=== PATIENT | female | born 1950 | race Caucasian/White ===

== ENCOUNTER 2017-05-23 13:13 | Emergency (ER) | payer MEDICARE, OTHER ==
[2017-05-23 13:17] VITALS: BP 117/54
[2017-05-23] MEDS ORDERED: Sodium Chloride 0.9% 10 ML Syringe FLUSH PRN (13:27)
[2017-05-23] MEDS ORDERED: Sodium Chloride 0.9% 1,000 ML IV SCH (13:30)
--- NOTE | 2017-05-23 13:30 | EDM.PDOC ---
ED HPI GENERAL MEDICAL PROBLEM - General Chief Complaint: Gastrointestinal Problem Stated Complaint: Nausea/Vomiting Time Seen by Provider: 05/23/17 13:20 Source of Information: Reports: Patient History Limitations: Reports: No Limitations - History of Present Illness INITIAL COMMENTS - FREE TEXT/NARRATIVE: Patient is a 66-year-old female who presents to the ER with chief complaint of diarrhea some nausea and vomiting denies pain Onset: Today, Gradual Duration: Hour(s): Location: Reports: Abdomen Quality: Reports: Ache, Sharp Severity: Moderate Improves with: Reports: None Worsens with: Reports: None Context: Reports: Activity, Sick Contact Associated Symptoms: Reports: Fever/Chills, Nausea/Vomiting Back Pain Score (Numeric/FACES): 4 - Related Data Allergies Allergy/AdvReac Type Severity Reaction Status Date / Time aspirin Allergy Shaking Verified 05/23/17 13:14 Home Meds: Home Meds . [Unable to Verify Home Med List] 05/23/17 [History] ED ROS GENERAL - Review of Systems Review Of Systems: See Below Constitutional: Reports: No Symptoms HEENT: Reports: No Symptoms Respiratory: Reports: No Symptoms Cardiovascular: Reports: No Symptoms Endocrine: Reports: No Symptoms GI/Abdominal: Reports: Diarrhea (watery), Other (Dry heaves) : Reports: No Symptoms Skin: Reports: Other (Lower back pain) Psychiatric: Reports: No Symptoms Hematologic/Lymphatic: Reports: No Symptoms Immunologic: Reports: No Symptoms ED EXAM, GI/ABD - Physical Exam Exam: See Below Exam Limited By: No Limitations General Appearance: Alert, WD/WN, No Apparent Distress Ears: Normal External Exam, Normal Canal, Hearing Grossly Normal, Normal TMs Nose: Normal Inspection, Normal Mucosa, No Blood Throat/Mouth: Normal Inspection, Normal Lips, Normal Teeth, Normal Gums, Normal Oropharynx, Normal Voice, No Airway Compromise Head: Atraumatic, Normocephalic Neck: Normal Inspection, Supple, Non-Tender, Full Range of Motion Respiratory/Chest: No Respiratory Distress, Lungs Clear, Normal Breath Sounds, No Accessory Muscle Use, Chest Non-Tender Cardiovascular: Normal Peripheral Pulses, Regular Rate, Rhythm, No Edema, No Gallop, No JVD, No Murmur, No Rub GI/Abdominal: Normal Bowel Sounds, Non-Tender, Hyperactive Bowel Sounds, Other ( Back pain) (Female) Exam: Deferred Rectal (Female) Exam: Deferred Back Exam: Normal Inspection, Full Range of Motion, NT Extremities: Normal Inspection, Normal Range of Motion, Non-Tender, Normal Capillary Refill, No Pedal Edema Neurological: Alert, Oriented, CN II-XII Intact, Normal Cognition, Normal Gait, Normal Reflexes, No Motor/Sensory Deficits Psychiatric: Normal Affect, Normal Mood Skin Exam: Warm, Dry, Intact, Normal Color, No Rash Lymphatic: No Adenopathy Course - Vital Signs Last Recorded V/S: Last Vital Signs Temp 98.3 F 05/23/17 13:16 Pulse 115 H 05/23/17 13:16 Resp 20 05/23/17 13:16 BP 117/54 L 05/23/17 13:16 Pulse Ox 100 05/23/17 13:16 - Orders/Labs/Meds Orders: Active Orders 24 hr Category Date Time Status Abdomen Pelvis w Cont [CT] Stat Exams 05/23/17 14:16 Taken STOOL CULTURE [MREF] Stat Lab 05/23/17 15:55 Received Sodium Chloride 0.9% [Normal Saline] 1,000 ml Med 05/23/17 13:30 Active IV ASDIRECTED Sodium Chloride 0.9% [Saline Flush] Med 05/23/17 13:27 Active 10 ml FLUSH ASDIRECTED PRN Saline Lock Insert [OM.PC] Routine Oth 05/23/17 13:27 Ordered Medication Orders Sodium Chloride (Normal Saline) 1,000 mls @ 250 mls/hr IV ASDIRECTED YEFRI Last Admin: 05/23/17 13:41 Dose: 250 mls/hr Sodium Chloride (Saline Flush) 10 ml FLUSH ASDIRECTED PRN PRN Reason: Keep Vein Open Labs: Laboratory Tests 05/23/17 05/23/17 05/23/17 Range/Units 13:30 13:30 15:55 WBC 16.7 H (4.0-10.2) K/uL RBC 4.41 (3.77-5.09) M/uL Hgb 12.9 (11.7-15.5) g/dL Hct 39.3 (34.0-46.0) % MCV 89.1 (84.0-98.0) fL MCH 29.3 (28.2-33.3) pg MCHC 32.8 (31.7-36.0) g/dL RDW 13.2 (11.2-14.1) % Plt Count 277 (150-350) K/uL Neut % (Auto) 84.7 H (45.0-80.0) % Lymph % (Auto) 6.3 L (10.0-50.0) % [place] % (Auto) 8.9 (2.0-14.0) % Eos % (Auto) 0.0 (0.0-5.0) % Baso % (Auto) 0.1 (0.0-2.0) % Neut # (Auto) 14.14 H (1.40-7.00) K/uL Lymph # (Auto) 1.05 (0.50-3.50) K/uL [place] # (Auto) 1.48 H (0.00-1.00) K/uL Eos # (Auto) 0.00 (0.00-0.50) K/uL Baso # (Auto) 0.01 (0.00-0.20) K/uL Sodium 136 (136-145) mmol/L Potassium 4.1 (3.5-5.1) mmol/L Chloride 100 (98-107) mmol/L Carbon Dioxide 26.3 (21.0-32.0) mmol/L BUN 12 (7-18) mg/dL Creatinine 0.96 (0.51-1.17) mg/dL Est Cr Clr Drug Dosing 46.19 mL/min Estimated GFR (MDRD) 58 mL/min Glucose 112 H (74-106) mg/dL Calcium 8.8 (8.5-10.1) mg/dL Specimen Type Urinvoid Urine Color Yellow Urine Appearance Clear Urine pH 5.0 (5.0-9.0) Ur Specific [place] 1.025 (1.005-1.030) Urine Protein 30 H (NEGATIVE) mg/dL Urine Glucose (UA) Negative (NEGATIVE) mg/dL Urine Ketones 15 H (NEGATIVE) mg/dL Urine Occult Blood Large H (NEGATIVE) Urine Nitrite Negative (NEGATIVE) Urine Bilirubin Small H (NEGATIVE) Urine Urobilinogen 0.2 (0.2-1.0) E.U./dL Ur Leukocyte Esterase Negative (NEGATIVE) Urine RBC /HPF Urine WBC /HPF Ur Epithelial Cells /LPF Urine Bacteria (NONE TO FEW) /HPF Meds: Medications Generic Name Dose Route Start Last Admin Trade Name Freq PRN Reason Stop Dose Admin Sodium Chloride 1,000 mls @ 250 mls/hr 05/23/17 13:30 05/23/17 13:41 Normal Saline IV 250 mls/hr ASDIRECTED YEFRI Administration Sodium Chloride 10 ml 05/23/17 13:27 Saline Flush FLUSH ASDIRECTED PRN Keep Vein Open Discontinued Medications Generic Name Dose Route Start Last Admin Trade Name Freq PRN Reason Stop Dose Admin Iopamidol 100 ml 05/23/17 15:20 05/23/17 15:49 Isovue-300 (61%) IVPUSH 05/23/17 15:21 100 ml ONETIME ONE Administration Departure - Departure Time of Disposition: 17:31 Disposition: Home, Self-Care 01 Condition: Fair Clinical Impression: Colitis presumed infectious - Discharge Information Referrals: Lacy Chandler NP [Primary Care Provider] - Forms: ED Department Discharge Additional Instructions: Colitis infectious Plan patient will be sent home on antibiotics Cipro 500 twice a day for 10 days Flagyl 500 3 times a day 10 days Prednisone 20 mg once a day for 5 days Patient was scheduled for colonoscopy on Tuesday on - My Orders Last 24 Hours: My Active Orders 05/23/17 13:27 Sodium Chloride 0.9% [Saline Flush] 10 ml FLUSH ASDIRECTED PRN Saline Lock Insert [OM.PC] Routine 05/23/17 13:30 Sodium Chloride 0.9% [Normal Saline] 1,000 ml IV ASDIRECTED 05/23/17 14:16 Abdomen Pelvis w Cont [CT] Stat 05/23/17 15:55 STOOL CULTURE [MREF] Stat - Assessment/Plan Last 24 Hours: My Active Orders 05/23/17 13:27 Sodium Chloride 0.9% [Saline Flush] 10 ml FLUSH ASDIRECTED PRN Saline Lock Insert [OM.PC] Routine 05/23/17 13:30 Sodium Chloride 0.9% [Normal Saline] 1,000 ml IV ASDIRECTED 05/23/17 14:16 Abdomen Pelvis w Cont [CT] Stat 05/23/17 15:55 STOOL CULTURE [MREF] Stat
[2017-05-23] MEDS ORDERED: Iopamidol 612 MG/ML 100 ML Bottle IVPUSH ONE (15:20)
== END 2017-05-23 18:15 | disposition home or self-care (01) ==
LOC: LL.ED 13:13
DX: K52.9 Noninfective gastroenteritis and colitis, unspecified (principal); Z88.6 Allergy status to analgesic agent
CPT/HCPCS: 36415; 74177; 80048; 81001; 85025; 87045; 87046; 96360; 96361; 99284; J7030; Q9967

== ENCOUNTER → 2017-05-26 | Day surgery (SDC) | payer MEDICARE, OTHER ==
[~2017-05-26] MED LIST: Lactated Ringers 1,000 ML IV SCH; Propofol 200 MG/20 ML SDV ONE; Sodium Chloride 0.9% 10 ML Syringe FLUSH PRN
--- NOTE | 2017-05-26 11:18 | PCM.PN ---
- General Info Date of Service: 05/26/17 - Review of Systems Systems Review Comment:: 66-year-old female referred for her initial colonoscopy. She has recently had some symptoms of abdominal pain and diarrhea. She denies a known family history of colon cancer. She is medically stable to proceed today. Her health status is similar to her recent history and physical which is reviewed. Her GI symptoms have improved since that time. I discussed the proposed colonoscopy with the patient. Risks such as but not limited to bleeding and GI injury or discussed. She appears to understand and agrees to proceed. - Patient Data Vitals - most recent: Last Vital Signs Temp 97.8 F 05/26/17 10:47 Pulse 96 05/26/17 10:47 Resp 20 05/26/17 10:47 BP 150/90 H 05/26/17 10:47 Pulse Ox 100 05/26/17 10:47 Weight - most recent: 45.359 kg Med Orders - Current: Current Medications Lactated Ringer's (Ringers, Lactated) 1,000 mls @ 125 mls/hr IV ASDIRECTED YEFRI Last Admin: 05/26/17 11:14 Dose: 125 mls/hr Sodium Chloride (Saline Flush) 10 ml FLUSH ASDIRECTED PRN PRN Reason: Keep Vein Open Discontinued Medications Propofol (Diprivan 20 Ml) Confirm Administered Dose 400 mg .ROUTE .STK-MED ONE Stop: 05/26/17 10:54 - Problem List Review Problem List Initiated/Reviewed/Updated: Yes - My Orders Last 24 Hours: My Active Orders 05/26/17 09:30 Patient Status [ADT] Routine Peripheral IV Care [RC] . DIRECTED Verify Patient Consent Obtain [RC] ASDIRECTED Lactated Ringers [Ringers, Lactated] 1,000 ml IV ASDIRECTED Sodium Chloride 0.9% [Saline Flush] 10 ml FLUSH ASDIRECTED PRN Peripheral IV Insertion Adult [OM.PC] Routine - Assessment Assessment:: Screening for colon cancer Diarrhea - Plan Plan:: Colonoscopy
--- NOTE | 2017-05-26 11:58 | PCM.OPNOTE ---
- General Post-Op/Procedure Note Date of Surgery/Procedure: 05/26/17 Operative Procedure(s): Colonoscopy with Biopsy Findings: Mild erythema in mid and left colon (colitis) Sigmoid Diverticulosis - mild Pre Op Diagnosis: Colon Cancer Screening. Diarrhea Post-Op Diagnosis: Colitis. Diverticulosis Anesthesia Technique: MAC Primary Surgeon: William Mckeon Pathology: Biopsies of Left and Right Colon Output, Urine Amount: 0 EBL in mLs: 3 Complications: None Condition: Good Free Text/Narrative:: Intake & Output 05/25/17 05/26/17 05/26/17 22:59 06:59 14:59 Intake Total 900 Balance 900
--- NOTE | 2017-05-26 15:06 | OR ---
Date of Procedure: 05/26/2017 PREOPERATIVE DIAGNOSES: 1. Colon cancer screening. 2. Diarrhea. POSTOPERATIVE DIAGNOSES: 1. Colitis. 2. Sigmoid diverticulosis. OPERATION PERFORMED: Colonoscopy with biopsy. INDICATIONS FOR SURGERY: This 66-year-old female who has never had a previous colonoscopy and is referred for this. She recently has been having some symptoms of abdominal pain and diarrhea. FINDINGS: The patient has a mild degree of hyperemia of the colon mucosa diffusely through the mid and left colon. There were no ulcerations or exudates noted. She has also [id number] degree of sigmoid diverticulosis with tortuosity through the sigmoid region although this area does not appear to be acutely infected. The remainder of the colon appears normal. PROCEDURE IN DETAIL: The patient was taken to the operating room. She was given intravenous sedation and with her in the left lateral decubitus position, digital rectal exam was performed showing no rectal masses. The Olympus colonoscope was inserted into the rectum. Retroflexed examination of the rectal canal was performed. The scope was then carefully advanced under direct visualization through the entire length of the colon until the cecum was reached. This did require careful manipulation of the scope through the sigmoid region because of the tortuosity and looping of the colon and some hand pressure, but eventually with careful technique, the scope was able to be advanced to the cecum. Cecal acquisition was confirmed by noting the normal internal cecal anatomy including the appendiceal orifice and ileocecal valve and also noting the light to transilluminate the abdominal wall in the right lower quadrant. After carefully examining the cecum, the scope was slowly withdrawn sequentially re-examining the colonic segments until the entire colon and rectum had been fully examined. Random biopsies were taken of the right and left colon because of her symptoms of diarrhea. After the examination had been completed and with no evidence of any complications, the scope was removed and the patient was taken from the operating room in satisfactory condition. ESTIMATED BLOOD LOSS: 3 mL. COMPLICATIONS: None. PROGNOSIS: Good. PARAMJIT Mckeon MD /[id number]
[2017-05-26 15:19] VITALS: BP 166/82
== END | disposition home or self-care (01) ==
LOC: LL.SDS 09:23
PROVIDERS: ATTEND Surgery
DX: K52.9 Noninfective gastroenteritis and colitis, unspecified (principal); K57.30 Diverticulosis of large intestine without perforation or abscess without bleeding
CPT/HCPCS: 00810; 45380; J2704; J7120; 88305

== ENCOUNTER 2017-06-01 15:35 | Emergency (ER) | payer MEDICARE, OTHER ==
--- NOTE | 2017-06-01 16:04 | EDM.PDOC ---
ED HPI GENERAL MEDICAL PROBLEM - General Chief Complaint: General Stated Complaint: syncoal episode Time Seen by Provider: 06/01/17 15:47 - History of Present Illness INITIAL COMMENTS - FREE TEXT/NARRATIVE: Patient brought in by EMS after experiencing an episode of syncope while at work. Patient was having usual day and felt well overall. She reports that she suddenly felt lightheaded. Co-workers report that she then slid to the floor and was "out" for a minute. When she woke up she felt nauseated and sweaty , and had two episodes of emesis. By time she arrived to ER she felt back to normal. She has had two similar episodes in past. Both times she was diagnosed with UTI. She has no history of MA/cardiac disease. No history of seizures. 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 Her last dose is in three days. She felt a bit ill when she tried to take it before eating yesterday. TOday she took the morning dose with food and felt fine. All loose stools have stopped. No fevers. No other complaints prior to passing out today. Denies feeling palpitations. - Related Data Allergies Allergy/AdvReac Type Severity Reaction Status Date / Time aspirin Allergy Shaking Verified 06/01/17 15:49 nitrofurantoin Allergy Hives Verified 06/01/17 16:26 [From Macrobid] Home Meds: Home Meds Ascorbic Acid [Vitamin C] 500 mg PO DAILY 05/26/17 [History] Cholecalciferol (Vitamin D3) [Vitamin D3] 5,000 unit PO DAILY 05/26/17 [History] Ciprofloxacin [Ciprofloxacin HCl] 500 mg PO BID 05/26/17 [History] Cyanocobalamin (Vitamin B-12) [B-12] 1,000 mcg PO DAILY 05/26/17 [History] Metronidazole [IJD: metroNIDAZOLE] 500 mg PO TID 05/26/17 [History] Vitamin A 8,000 unit PO DAILY 05/26/17 [History] Lutein/Minerals/Vit A,C & E [Ocuvite] 1 each PO DAILY 06/01/17 [History] Triamcinolone Acetonide [Triamcinolone Acetonide 0.1% Crm] 1 applic TOP BID PRN 06/01/17 [History] atorvaSTATin [Lipitor] 10 mg PO BEDTIME 07/26/17 [History] Past Medical History HEENT History: Reports: Impaired Vision Other HEENT History: wears glasses Cardiovascular History: Reports: High Cholesterol [employer]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: Dermatologic History: Reports: Other (See Below) Other Dermatologic History: lykenplantus - Infectious Disease History Infectious Disease History: Reports: Chicken Pox, Measles Social & Family History - Tobacco Use Smoking Status *Q: Current Every Day Smoker Years of Tobacco use: 40 Packs/Tins Daily: 0.5 - Caffeine Use Caffeine Use: Reports: Coffee, Soda - Recreational Drug Use Recreational Drug Use: No ED ROS GENERAL - Review of Systems Review Of Systems: See Below Constitutional: Reports: No Symptoms HEENT: Reports: No Symptoms Respiratory: Reports: No Symptoms Cardiovascular: Reports: Lightheadedness, Syncope. Denies: Chest Pain, Dyspnea on Exertion, Edema, Orthopnea, Palpitations Endocrine: Reports: No Symptoms GI/Abdominal: Reports: Nausea, Vomiting. Denies: Abdominal Pain, Anorexia, Black Stool, Bloody Stool, Constipation, Diarrhea, Decreased Appetite, Difficulty Swallowing, Distension, Hematemesis, Hematochezia, Melena : Reports: No Symptoms Musculoskeletal: Reports: No Symptoms Skin: Reports: No Symptoms Neurological: Reports: Dizziness, Syncope. Denies: Confusion, Headache, Numbness, Paresthesia, Seizure, Tingling, Tremors, Trouble Speaking, Difficulty Walking, Weakness, Change in Speech, Gait Disturbance Psychiatric: Reports: No Symptoms Hematologic/Lymphatic: Reports: No Symptoms ED EXAM, GENERAL - Physical Exam Exam: See Below Exam Limited By: No Limitations General Appearance: Alert, WD/WN, No Apparent Distress Eye Exam: Bilateral Eye: EOMI, PERRL Ears: Normal External Exam, Normal Canal Nose: Normal Inspection, Normal Mucosa, No Blood Throat/Mouth: Normal Inspection, Normal Lips, Normal Oropharynx, Normal Voice, No Airway Compromise Head: Atraumatic, Normocephalic Neck: Normal Inspection, Supple, Non-Tender, Full Range of Motion. No: Lymphadenopathy (L), Lymphadenopathy (R) Respiratory/Chest: No Respiratory Distress, Lungs Clear, No Accessory Muscle Use Cardiovascular: Normal Peripheral Pulses, Regular Rate, Rhythm, No Edema, No JVD , No Murmur Peripheral Pulses: 2+: Radial (L), Radial (R) GI/Abdominal: Normal Bowel Sounds, Soft, Non-Tender, No Organomegaly, No Distention (Female) Exam: Deferred Rectal (Female) Exam: Deferred Back Exam: Normal Inspection. No: CVA Tenderness (L), CVA Tenderness (R), Muscle Spasm, Paraspinal Tenderness, Vertebral Tenderness Extremities: Normal Inspection, Normal Range of Motion, Non-Tender, No Pedal Edema, Normal Capillary Refill Neurological: Alert, Oriented, CN II-XII Intact, Normal Cognition, Normal Reflexes, No Motor/Sensory Deficits Psychiatric: Normal Affect Skin Exam: Warm, Dry, Intact, Normal Color EKG INTERPRETATION EKG Date: 06/01/17 Time: 15:58 Rhythm: NSR Rate (Beats/Min): 91 [place]: Normal P-Wave: Present QRS: Normal ST-T: Other (no acute ischemia noted.) QT: Normal Comparison: NA - No Prior EKG Course - Vital Signs Last Recorded V/S: Last Vital Signs Temp 36.9 C 06/01/17 15:39 Pulse 88 06/01/17 16:28 Resp 20 06/01/17 16:28 BP 127/55 L 06/01/17 16:28 Pulse Ox 97 06/01/17 16:28 - Orders/Labs/Meds Orders: Active Orders 24 hr Category Date Time Status EKG Documentation Completion [RC] ASDIRECTED Care 06/01/17 15:53 Active Labs: Laboratory Tests 06/01/17 06/01/17 06/01/17 Range/Units 16:00 16:00 16:00 WBC 14.7 H (4.0-10.2) K/uL RBC 3.84 (3.77-5.09) M/uL Hgb 11.4 L D (11.7-15.5) g/dL Hct 34.2 (34.0-46.0) % MCV 89.1 (84.0-98.0) fL MCH 29.7 (28.2-33.3) pg MCHC 33.3 (31.7-36.0) g/dL RDW 13.2 (11.2-14.1) % Plt Count 371 H D (150-350) K/uL Neut % (Auto) 71.9 (45.0-80.0) % Lymph % (Auto) 13.1 (10.0-50.0) % [place] % (Auto) 14.6 H (2.0-14.0) % Eos % (Auto) 0.3 (0.0-5.0) % Baso % (Auto) 0.1 (0.0-2.0) % Neut # (Auto) 10.57 H (1.40-7.00) K/uL Lymph # (Auto) 1.92 (0.50-3.50) K/uL [place] # (Auto) 2.15 H (0.00-1.00) K/uL Eos # (Auto) 0.05 (0.00-0.50) K/uL Baso # (Auto) 0.02 (0.00-0.20) K/uL Sodium 136 (136-145) mmol/L Potassium 4.0 (3.5-5.1) mmol/L Chloride 99 (98-107) mmol/L Carbon Dioxide 30.7 (21.0-32.0) mmol/L BUN 11 (7-18) mg/dL Creatinine 1.08 (0.51-1.17) mg/dL Est Cr Clr Drug Dosing 38.56 mL/min Estimated GFR (MDRD) 50 mL/min Glucose 156 H (74-106) mg/dL Calcium 8.4 L (8.5-10.1) mg/dL Total Bilirubin 0.4 (0.2-1.0) mg/dL AST 26 (15-37) U/L ALT 26 (12-78) U/L Alkaline Phosphatase 65 (46-116) IU/L Creatine Kinase 41 (26-308) U/L Creatine Kinase Index 0.5 (0.0-2.5) % CK-MB (CK-2) 0.20 (0.00-3.60) ng/mL Troponin I 0.000 (0.000-0.056) ng/mL Total Protein 6.5 (6.4-8.2) g/dL Albumin 2.9 L (3.4-5.0) g/dL Specimen Type Urine Color Urine Appearance Urine pH (5.0-9.0) Ur Specific [place] (1.005-1.030) Urine Protein (NEGATIVE) mg/dL Urine Glucose (UA) (NEGATIVE) mg/dL Urine Ketones (NEGATIVE) mg/dL Urine Occult Blood (NEGATIVE) Urine Nitrite (NEGATIVE) Urine Bilirubin (NEGATIVE) Urine Urobilinogen (0.2-1.0) E.U./dL Ur Leukocyte Esterase (NEGATIVE) Urine RBC /HPF Urine WBC /HPF Ur Epithelial Cells /LPF Other Crystals /HPF Urine Bacteria (NONE TO FEW) /HPF Hyaline Casts (NEGATIVE) /LPF Urine Mucus (NEGATIVE) /LPF 06/01/17 Range/Units 17:35 WBC (4.0-10.2) K/uL RBC (3.77-5.09) M/uL Hgb (11.7-15.5) g/dL Hct (34.0-46.0) % MCV (84.0-98.0) fL MCH (28.2-33.3) pg MCHC (31.7-36.0) g/dL RDW (11.2-14.1) % Plt Count (150-350) K/uL Neut % (Auto) (45.0-80.0) % Lymph % (Auto) (10.0-50.0) % [place] % (Auto) (2.0-14.0) % Eos % (Auto) (0.0-5.0) % Baso % (Auto) (0.0-2.0) % Neut # (Auto) (1.40-7.00) K/uL Lymph # (Auto) (0.50-3.50) K/uL [place] # (Auto) (0.00-1.00) K/uL Eos # (Auto) (0.00-0.50) K/uL Baso # (Auto) (0.00-0.20) K/uL Sodium (136-145) mmol/L Potassium (3.5-5.1) mmol/L Chloride (98-107) mmol/L Carbon Dioxide (21.0-32.0) mmol/L BUN (7-18) mg/dL Creatinine (0.51-1.17) mg/dL Est Cr Clr Drug Dosing mL/min Estimated GFR (MDRD) mL/min Glucose (74-106) mg/dL Calcium (8.5-10.1) mg/dL Total Bilirubin (0.2-1.0) mg/dL AST (15-37) U/L ALT (12-78) U/L Alkaline Phosphatase (46-116) IU/L Creatine Kinase (26-308) U/L Creatine Kinase Index (0.0-2.5) % CK-MB (CK-2) (0.00-3.60) ng/mL Troponin I (0.000-0.056) ng/mL Total Protein (6.4-8.2) g/dL Albumin (3.4-5.0) g/dL Specimen Type Urincc Urine Color Yellow Urine Appearance Clear Urine pH 5.5 (5.0-9.0) Ur Specific [place] 1.015 (1.005-1.030) Urine Protein Negative (NEGATIVE) mg/dL Urine Glucose (UA) Negative (NEGATIVE) mg/dL Urine Ketones Trace H (NEGATIVE) mg/dL Urine Occult Blood Small H (NEGATIVE) Urine Nitrite Negative (NEGATIVE) Urine Bilirubin Negative (NEGATIVE) Urine Urobilinogen 0.2 (0.2-1.0) E.U./dL Ur Leukocyte Esterase Negative (NEGATIVE) Urine RBC 10-20 H /HPF Urine WBC 0-5 /HPF Ur Epithelial Cells Few /LPF Other Crystals /HPF Urine Bacteria Few (NONE TO FEW) /HPF Hyaline Casts Few H (NEGATIVE) /LPF Urine Mucus Few H (NEGATIVE) /LPF - Re-Assessments/Exams Free Text/Narrative Re-Assessment/Exam: 06/01/17 17:20 Patient remained asymptomatic. Comfortable. Vital signs stable. WBC continues to have some elevation. Platelets mildly elevated. Chemistry overall unremarkable. Specific cause for episode unclear. 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 recalls that she has become faint in past when overly-warm. May also be related to the Cipro and/or recent illness with Salmonella. She does not appear dehydrated. Numerous precautions reviewed with patient prior to discharge. She knows to return to the ER or to clinic if she continues to have any complaints/new problems arise. Free Text/Narrative Re-Assessment/Exam: 06/01/17 18:09 UA negative Departure - Departure Time of Disposition: 18:09 Disposition: Home, Self-Care 01 Condition: Good Clinical Impression: Syncope Qualifiers: Syncope type: unspecified Qualified Code(s): R55 - Syncope and collapse - Discharge Information Instructions: Syncope, [id number] Referrals: Lacy Chandler NP [Primary Care Provider] - Forms: ED Department Discharge Additional Instructions: Take it easy tonight and tomorrow. See if you have any other signs of illness or if you feel unwell. Follow up in ER or with clinic if you continue to have any problems/changes. - My Orders Last 24 Hours: My Active Orders 06/01/17 15:53 EKG Documentation Completion [RC] ASDIRECTED - Assessment/Plan Last 24 Hours: My Active Orders 06/01/17 15:53 EKG Documentation Completion [RC] ASDIRECTED
[2017-06-01 19:31] VITALS: BP 155/77
== END 2017-06-01 18:45 | disposition home or self-care (01) ==
LOC: LL.ED 15:35
DX: R55 Syncope and collapse (principal); H54.7 Unspecified visual loss; E78.00 Pure hypercholesterolemia, unspecified; F17.210 Nicotine dependence, cigarettes, uncomplicated; Z88.8 Allergy status to other drugs, medicaments and biological substances; Z79.899 Other long term (current) drug therapy
CPT/HCPCS: 36415; 80053; 81001; 82550; 82553; 84484; 85025; 93005; 99283; 99285

== ENCOUNTER 2017-11-16 10:11 | Day surgery (SDC) | payer MEDICARE, OTHER ==
[~2017-11-16 10:11] MED LIST changes: -Propofol 200 MG/20 ML SDV ONE
[2017-11-16] MEDS ORDERED: fentaNYL 100 MCG/2 ML SDV ONE ×2 (11:23→11:25)
[2017-11-16] MEDS ORDERED: Midazolam 1 MG/ML 2 ML SDV ONE ×2 (11:23→11:25)
[2017-11-16] MEDS ORDERED: Propofol 200 MG/20 ML SDV ONE ×2 (11:23→11:25)
--- NOTE | 2017-11-16 12:51 | OR ---
Date of Procedure: 11/16/2017 PREOPERATIVE DIAGNOSIS: Hematuria. POSTOPERATIVE DIAGNOSIS: Hematuria, normal examination. PROCEDURE: Cystoscopy. ANESTHESIA: Sedation. COMPLICATION: None. SPECIMEN: None. DRAINS: None. BLOOD LOSS: None. HISTORY: She has history of microhematuria. She has a CT scan, which did not show pathology. In May of 2017, she had an ultrasound, which did not show pathology. In 09/2017, she does have cytology x3. In 09/2017, which showed atypia. WHAT WAS DONE: The patient was placed on the operative table in lithotomy position. She was sedated by anesthesia. Cystoscope was inserted. External genitalia are unremarkable. Bladder shows no mucosal lesions. No erythema. No stones. She does have some posterior displacement consistent with a cystocele. The bladder was emptied. The cystoscope was removed under vision. The urethra was unremarkable. I found no pathology. We will leave her alone. We will see her in the office in approximately 6 months. PARAMJIT Wood MD /[id number]
[2017-11-16 14:19] VITALS: BP 167/86
== END 2017-11-16 12:55 | disposition home or self-care (01) ==
LOC: LL.SDS 10:11
PROVIDERS: ATTEND Urology
DX: R31.9 Hematuria, unspecified (principal); Z88.1 Allergy status to other antibiotic agents; Z88.8 Allergy status to other drugs, medicaments and biological substances; F17.210 Nicotine dependence, cigarettes, uncomplicated; Z79.899 Other long term (current) drug therapy
CPT/HCPCS: 52000; J7120; 00910; A4216; J2250; J2704; J3010

== ENCOUNTER 2020-11-08 07:58 | Emergency (ER) | payer MEDICARE, OTHER ==
--- NOTE | 2020-11-08 08:52 | EDM.PDOC ---
ED HPI GENERAL MEDICAL PROBLEM - General Chief Complaint: General Stated Complaint: SYNCOPE Time Seen by Provider: 11/08/20 08:35 - History of Present Illness INITIAL COMMENTS - FREE TEXT/NARRATIVE: She is brought to the emergency department by her for evaluation of an apparent syncopal episode. She was in the bathroom this morning and felt lightheaded. She sat down on the edge of the tub and called her for h elp. She then started having some dry heaves. Then apparently lost consciousness briefly. She denies significant dizziness. There was no chest pain or tightness. No difficulty breathing. She does have a history of similar episodes in the past when she has had a UTI, and she usually does not have any symptoms of a UTI. She is complaining of a toothache in the right lower jaw towards the back. She thinks she has a problem underneath her crown. This has been present for a few days. No fever or chills. No nasal congestion or stuffy head. No sore throat. No cough or shortness of breath. She did have the dry heaves earlier but otherwise denies any nausea or vomiting. No diarrhea. She has a history of hyperlipidemia but denies any other underlying medical issues. Here in the emergency department complains of the tooth ache, but otherwise is completely without complaints. Right Jaw Pain Score (Numeric/FACES): 10 - Related Data Allergies Allergy/AdvReac Type Severity Reaction Status Date / Time aspirin Allergy Shaking Verified 11/08/20 08:09 ciprofloxacin [From Cipro] Allergy Cannot Verified 11/08/20 08:09 Remember metronidazole [From Flagyl] Allergy Cannot Verified 11/08/20 08:09 Remember nitrofurantoin Allergy Hives Verified 11/08/20 08:09 [From Macrobid] Home Meds: Home Meds Ascorbic Acid [Vitamin C] 500 mg PO DAILY 05/26/17 [History] Cholecalciferol (Vitamin D3) [Vitamin D3] 5,000 unit PO DAILY 05/26/17 [History] Cyanocobalamin (Vitamin B-12) [B-12] 1,000 mcg PO DAILY 05/26/17 [History] Vitamin A 8,000 unit PO DAILY 05/26/17 [History] Lutein/Minerals/Vit A,C & E [Ocuvite] 1 each PO DAILY 06/01/17 [History] atorvaSTATin [Lipitor] 10 mg PO BEDTIME 06/01/17 [History] Past Medical History HEENT History: Reports: None Other HEENT History: wears glasses Cardiovascular History: Reports: High Cholesterol Respiratory History: Reports: None Gastrointestinal History: Reports: Other (See Below) Other Gastrointestinal History: recent colitits and treatment for salmonella Genitourinary History: Reports: Other (See Below) Other Genitourinary History: bilat renal cysts, microscopic hematuria [employer] History: Reports: Musculoskeletal History: Reports: None Neurological History: Reports: None Psychiatric History: Reports: None Endocrine/Metabolic History: Reports: None Hematologic History: Reports: None Immunologic History: Reports: None Oncologic (Cancer) History: Reports: None Dermatologic History: Reports: None Other Dermatologic History: lykenplantus - Infectious Disease History Infectious Disease History: Reports: Chicken Pox, Measles - Past Surgical History GI Surgical History: Reports: Colonoscopy Female Surgical History: Reports: Tubal Ligation Social & Family History - Caffeine Use Caffeine Use: Reports: Coffee, Soda ED ROS GENERAL - Review of Systems Review Of Systems: See Below Constitutional: Denies: Fever, Chills, Diaphoresis HEENT: Reports: Dental Pain. Denies: Ear Pain, Eye Pain, Rhinitis, Sinus Problem, Throat Pain Respiratory: Denies: Shortness of Breath, Cough Cardiovascular: Denies: Chest Pain, Palpitations GI/Abdominal: Denies: Constipation, Diarrhea, Decreased Appetite, Difficulty Swallowing, Nausea, Vomiting : Denies: Dysuria, Frequency, Hematuria, Urgency Musculoskeletal: Denies: Neck Pain Skin: Denies: Cyanosis, Diaphoresis Neurological: Reports: Syncope. Denies: Confusion, Headache, Numbness, Tingling Psychiatric: Denies: Anxiety, Depression ED EXAM, GENERAL - Physical Exam Exam: See Below Exam Limited By: No Limitations General Appearance: Alert, WD/WN, No Apparent Distress Ears: Normal External Exam, Normal Canal, Hearing Grossly Normal Nose: Normal Inspection, Normal Mucosa, No Blood Throat/Mouth: Other (Upper dentures. She does have significant tenderness around the lower right molar but no significant swelling or redness. No mucosal lesions.) Neck: Non-Tender. No: Lymphadenopathy (L), Lymphadenopathy (R) Respiratory/Chest: No Respiratory Distress, Lungs Clear, Normal Breath Sounds Cardiovascular: Regular Rate, Rhythm. No: No Murmur GI/Abdominal: Normal Bowel Sounds, Soft, Non-Tender (Female) Exam: Deferred Neurological: Alert, Oriented Psychiatric: Normal Affect, Normal Mood Skin Exam: Warm, Dry #1 Interpretation EKG Date: 11/08/20 Time: 08:40 Rhythm: NSR P-Wave: Present QRS: Normal ST-T: Normal QT: Normal (Slight sinus tachycardia. Questionable anterior infarct age undetermined. No significant change from EKG done in 2017.) Course - Vital Signs Text/Narrative:: Evaluation in the emergency department is essentially unremarkable and patient is completely asymptomatic. Syncopal episode possibly post micturition. Could be related to possible infection in her tooth. We will discharged home with antibiotics and close monitoring. Last Recorded V/S: Last Vital Signs Temp 36.6 C 11/08/20 08:00 Pulse 94 11/08/20 08:59 Resp 16 11/08/20 08:59 BP 159/84 H 11/08/20 08:59 Pulse Ox 99 11/08/20 08:59 - Orders/Labs/Meds Orders: Active Orders 24 hr Category Date Time Status Cardiac Monitoring [RC] . DIRECTED Care 11/08/20 08:22 Active EKG Documentation Completion [RC] ASDIRECTED Care 11/08/20 08:23 Active Labs: Laboratory Tests 11/08/20 11/08/20 11/08/20 Range/Units 08:22 08:22 08:22 WBC 10.7 H (4.0-10.2) K/uL RBC 4.85 (3.77-5.09) M/uL Hgb 14.1 D (11.7-15.5) g/dL Hct 43.4 (34.0-46.0) % MCV 89.5 (84.0-98.0) fL MCH 29.1 (28.2-33.3) pg MCHC 32.5 (31.7-36.0) g/dL RDW 13.2 (11.2-14.1) % Plt Count 360 H (150-350) K/uL Neut % (Auto) 78.7 (45.0-80.0) % Lymph % (Auto) 11.3 (10.0-50.0) % [place] % (Auto) 9.5 (2.0-14.0) % Eos % (Auto) 0.3 (0.0-5.0) % Baso % (Auto) 0.2 (0.0-2.0) % Neut # (Auto) 8.39 H (1.40-7.00) K/uL Lymph # (Auto) 1.20 (0.50-3.50) K/uL [place] # (Auto) 1.01 H (0.00-1.00) K/uL Eos # (Auto) 0.03 (0.00-0.50) K/uL Baso # (Auto) 0.02 (0.00-0.20) K/uL Sodium 137 (136-145) mmol/L Potassium 4.4 (3.5-5.1) mmol/L Chloride 100 (98-107) mmol/L Carbon Dioxide 29.2 (21.0-32.0) mmol/L BUN 17 (7-18) mg/dL Creatinine 1.32 H (0.51-1.17) mg/dL Est Cr Clr Drug Dosing 27.67 mL/min Estimated GFR (MDRD) 40 mL/min Glucose 113 H (74-106) mg/dL Calcium 9.4 (8.5-10.1) mg/dL Total Bilirubin 0.3 (0.2-1.0) mg/dL AST 20 (15-37) U/L ALT 20 (12-78) U/L Alkaline Phosphatase 93 (46-116) IU/L Total Protein 8.1 (6.4-8.2) g/dL Albumin 3.5 (3.4-5.0) g/dL Specimen Type Urinvoid Urine Color Yellow Urine Appearance Clear Urine pH 6.0 (5.0-9.0) Ur Specific [place] 1.020 (1.005-1.030) Urine Protein 100 H (NEGATIVE) mg/dL Urine Glucose (UA) Negative (NEGATIVE) mg/dL Urine Ketones Negative (NEGATIVE) mg/dL Urine Occult Blood Small H (NEGATIVE) Urine Nitrite Negative (NEGATIVE) Urine Bilirubin Negative (NEGATIVE) Urine Urobilinogen 0.2 (0.2-1.0) E.U./dL Ur Leukocyte Esterase Negative (NEGATIVE) U Hyaline Cast (Auto) Few Urine RBC 5-10 H /HPF Urine WBC 0-5 /HPF Ur Epithelial Cells Few /LPF Urine Bacteria Few (NONE TO FEW) /HPF Granular Casts (Auto) Few Urine Mucus Occasional H (NEGATIVE) /LPF Departure - Departure Time of Disposition: 09:14 Disposition: Home, Self-Care 01 Condition: Good Clinical Impression: Infection of tooth Episode of syncope Qualifiers: Syncope type: unspecified Qualified Code(s): R55 - Syncope and collapse - Discharge Information *PRESCRIPTION DRUG MONITORING PROGRAM REVIEWED*: Not Applicable *COPY OF PRESCRIPTION DRUG MONITORING REPORT IN PATIENT SILVIA: Not Applicable Referrals: Lacy Chandler NP [Primary Care Provider] - Forms: ED Department Discharge Additional Instructions: Amoxicillin 875 mg. 1 tablet twice daily. She is given a 3-day supply and prescription for an additional week. Follow-up with a dentist this week. Push fluids. Tylenol and/or Advil as needed for pain. Call or follow-up with any further problems. Sepsis Event Note (ED) - Evaluation Sepsis Screening Result: No Definite Risk - Focused Exam Vital Signs: Vital Signs Temp Pulse Resp BP Pulse Ox 11/08/20 08:59 94 16 159/84 H 99 11/08/20 08:53 103 H 18 168/77 H 100 11/08/20 08:04 93 16 153/83 H 98 11/08/20 08:00 36.6 C 104 H 16 155/75 H 100 - Problem List & Annotations (1) Infection of tooth SNOMED Code(s): 970874619 Code(s): K04.7 - PERIAPICAL ABSCESS WITHOUT SINUS Status: Acute (2) Syncope SNOMED Code(s): 423172148 Code(s): R55 - SYNCOPE AND COLLAPSE Status: Acute Qualifiers: Syncope type: unspecified Qualified Code(s): R55 - Syncope and collapse - Problem List Review Problem List Initiated/Reviewed/Updated: Yes - My Orders Last 24 Hours: My Active Orders 11/08/20 08:22 Cardiac Monitoring [RC] . DIRECTED 11/08/20 08:23 EKG Documentation Completion [RC] ASDIRECTED - Assessment/Plan Last 24 Hours: My Active Orders 11/08/20 08:22 Cardiac Monitoring [RC] . DIRECTED 11/08/20 08:23 EKG Documentation Completion [RC] ASDIRECTED
[2020-11-08 09:00] VITALS: BP 159/84; PULSE 94
== END 2020-11-08 09:25 | disposition home or self-care (01) ==
LOC: LL.ED 07:58
DX: R55 Syncope and collapse (principal); K04.7 Periapical abscess without sinus; E78.00 Pure hypercholesterolemia, unspecified; Z79.899 Other long term (current) drug therapy; Z88.6 Allergy status to analgesic agent; Z88.1 Allergy status to other antibiotic agents
CPT/HCPCS: 36415; 80053; 81001; 85025; 93005; 93010; 99284; 99284-25

== ENCOUNTER 2020-11-10 10:56 | Emergency (ER) | payer MEDICARE, OTHER ==
--- NOTE | 2020-11-10 12:23 | EDM.PDOC ---
ED HPI GENERAL MEDICAL PROBLEM - General Chief Complaint: Syncope Stated Complaint: Syncope Time Seen by Provider: 11/10/20 11:15 Source of Information: Reports: Patient, EMS, Family History Limitations: Reports: No Limitations - History of Present Illness INITIAL COMMENTS - FREE TEXT/NARRATIVE: Pt brought to ER via EMS after having syncopal episode at home this AM Passed out after feeling dizzy EMS reports BP 221/170 and 210/115 BP in ER 168/100 Had similar episode yesterday and the day before First episode pt was in bathroom and sat on edge of tub because of being dizzy and passed out Seen in ER at that time and workup negative No chest pain No neuro symptoms No previous hx/o same Duration: Day(s):, Getting Worse Location: Reports: Chest, Generalized - Related Data Allergies Allergy/AdvReac Type Severity Reaction Status Date / Time aspirin Allergy Shaking Verified 11/10/20 11:22 ciprofloxacin [From Cipro] Allergy Cannot Verified 11/10/20 11:22 Remember metronidazole [From Flagyl] Allergy Cannot Verified 11/10/20 11:22 Remember nitrofurantoin Allergy Hives Verified 11/10/20 11:22 [From Macrobid] Home Meds: Home Meds Ascorbic Acid [Vitamin C] 500 mg PO DAILY 05/26/17 [History] Cholecalciferol (Vitamin D3) [Vitamin D3] 5,000 unit PO DAILY 05/26/17 [History] Cyanocobalamin (Vitamin B-12) [B-12] 1,000 mcg PO DAILY 05/26/17 [History] Vitamin A 8,000 unit PO DAILY 05/26/17 [History] Lutein/Minerals/Vit A,C & E [Ocuvite] 1 each PO DAILY 06/01/17 [History] atorvaSTATin [Lipitor] 10 mg PO BEDTIME 06/01/17 [History] Past Medical History HEENT History: Reports: None Other HEENT History: wears glasses Cardiovascular History: Reports: High Cholesterol Respiratory History: Reports: None Gastrointestinal History: Reports: Other (See Below) Other Gastrointestinal History: recent colitits and treatment for salmonella Genitourinary History: Reports: Other (See Below) Other Genitourinary History: bilat renal cysts, microscopic hematuria [employer] History: Reports: Musculoskeletal History: Reports: None Neurological History: Reports: None Psychiatric History: Reports: None Endocrine/Metabolic History: Reports: None Hematologic History: Reports: None Immunologic History: Reports: None Oncologic (Cancer) History: Reports: None Dermatologic History: Reports: None Other Dermatologic History: lykenplantus - Infectious Disease History Infectious Disease History: Reports: Chicken Pox, Measles - Past Surgical History HEENT Surgical History: Reports: Oral Surgery GI Surgical History: Reports: Colonoscopy Female Surgical History: Reports: Tubal Ligation Social & Family History - Caffeine Use Caffeine Use: Reports: Coffee ED ROS GENERAL - Review of Systems Review Of Systems: See Below Constitutional: Reports: No Symptoms HEENT: Reports: No Symptoms Respiratory: Reports: No Symptoms Cardiovascular: Reports: No Symptoms GI/Abdominal: Reports: No Symptoms Musculoskeletal: Reports: No Symptoms Skin: Reports: No Symptoms Neurological: Reports: Syncope Psychiatric: Reports: No Symptoms - Physical Exam Exam: See Below Exam Limited By: No Limitations General Appearance: Alert, WD/WN, No Apparent Distress Eye Exam: Bilateral Eye: EOMI, PERRL Ears: Normal External Exam Nose: Normal Inspection Throat/Mouth: Normal Inspection Head Exam: Atraumatic Neck: Supple Respiratory/Chest: Lungs Clear Cardiovascular: Regular Rate, Rhythm, Tachycardia GI/Abdominal: Non-Tender Neuro Exam (Abbreviated): Alert, Oriented, Normal Cognition, No Motor/Sensory Deficits Extremities: Normal Inspection Psychiatric: Normal Affect, Normal Mood Course - Vital Signs Last Recorded V/S: Last Vital Signs Temp 97.0 F 11/10/20 12:11 Pulse 100 11/10/20 12:11 Resp 18 11/10/20 12:11 BP 209/98 H 11/10/20 12:11 Pulse Ox 100 11/10/20 12:11 - Orders/Labs/Meds Orders: Active Orders 24 hr Category Date Time Status EKG Documentation Completion [RC] ASDIRECTED Care 11/10/20 11:10 Active Labs: Laboratory Tests 11/10/20 Range/Units 11:15 Troponin I 0.011 (0.000-0.056) ng/mL - Re-Assessments/Exams Free Text/Narrative Re-Assessment/Exam: 11/10/20 12:23 Pt stable in ER D/W Dr Belcher [facility] On-call hospitalist Will accept in transfer Transfer via EMS Departure - Departure Time of Disposition: 12:30 Disposition: Home, Self-Care 01 Clinical Impression: Syncope Qualifiers: Syncope type: unspecified Qualified Code(s): R55 - Syncope and collapse - Discharge Information *PRESCRIPTION DRUG MONITORING PROGRAM REVIEWED*: Not Applicable *COPY OF PRESCRIPTION DRUG MONITORING REPORT IN PATIENT SILVIA: Not Applicable Referrals: Lacy Chandler NP [Primary Care Provider] - Sepsis Event Note (ED) - Evaluation Sepsis Screening Result: No Definite Risk - Focused Exam Vital Signs: Vital Signs Temp Pulse Resp BP Pulse Ox 11/10/20 12:11 97.0 F 100 18 209/98 H 100 11/10/20 11:56 99 18 198/96 H 99 11/10/20 11:24 97 18 185/89 H 100 11/10/20 11:10 97.5 F 99 20 199/86 H 100 11/10/20 11:00 97.5 F 102 H 20 203/90 H 100 - My Orders Last 24 Hours: My Active Orders 11/10/20 11:10 EKG Documentation Completion [RC] ASDIRECTED - Assessment/Plan Last 24 Hours: My Active Orders 11/10/20 11:10 EKG Documentation Completion [RC] ASDIRECTED
[2020-11-10 12:36] VITALS: PULSE 105
[2020-11-10 13:24] VITALS: BP 214/106
== END 2020-11-10 13:00 ==
LOC: LL.ED 10:56
DX: R55 Syncope and collapse (principal); E78.00 Pure hypercholesterolemia, unspecified; Z79.899 Other long term (current) drug therapy; Z88.6 Allergy status to analgesic agent; Z88.1 Allergy status to other antibiotic agents
CPT/HCPCS: 36415; 84484; 93005; 99284; 99285-25

== ENCOUNTER 2021-06-22 10:29 | Emergency (ER) | payer MEDICARE, OTHER ==
[2021-06-22] MEDS ORDERED: Sodium Chloride 0.9% 10 ML Syringe FLUSH PRN (10:55)
[2021-06-22] MEDS ORDERED: Sodium Chloride 0.9% 1,000 ML IV ONE (10:55)
[2021-06-22 11:24] LABS: ANION GAP 6.3 meq/L (7-15); CHLORIDE,CL 101 mmol/L (98-107); SODIUM,NA 138 mmol/L (136-145)
[2021-06-22] MEDS ORDERED: Iopamidol 755 Mg/ML 100 ML Bottle IVPUSH ONE (11:55)
--- NOTE | 2021-06-22 12:34 | EDM.PDOC ---
ED HPI GENERAL MEDICAL PROBLEM - General Chief Complaint: Syncope Stated Complaint: syncopal episode Time Seen by Provider: 06/22/21 10:40 Source of Information: Reports: Patient History Limitations: Reports: No Limitations - History of Present Illness INITIAL COMMENTS - FREE TEXT/NARRATIVE: Patient presents to the Ed for syncope. She states that she awoke this morning. 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 Decided to get up, but felt dizzy, stumbled a little and scratched her arm. The rn labor delivery caught her so she did not fall. Unsure if she totally went unconscious. [place] fine afterwards. had similiar episode in but it was accompanies by hypertension. WEnt to [place], had MRI, EEG, monitoring. found nothing and sent her home. She states that over the weekend she had some back problems so spent a lot of time resting. Also has nausea and emesis most mornings but that is not unusual for her. no fevers, had her covid vaccine. EMS was called. No interventions. Did not want to come. Onset: Today, Sudden Duration: Resolved Prior to Arrival - Related Data Allergies Allergy/AdvReac Type Severity Reaction Status Date / Time aspirin Allergy Shaking Verified 06/22/21 10:48 ciprofloxacin [From Cipro] Allergy Cannot Verified 06/22/21 10:48 Remember metronidazole [From Flagyl] Allergy Cannot Verified 06/22/21 10:48 Remember nitrofurantoin Allergy Hives Verified 06/22/21 10:48 [From Macrobid] Home Meds: Home Meds Ascorbic Acid [Vitamin C] 500 mg PO DAILY 05/26/17 [History] Cholecalciferol (Vitamin D3) [Vitamin D3] 5,000 unit PO DAILY 05/26/17 [History] Cyanocobalamin (Vitamin B-12) [B-12] 1,000 mcg PO DAILY 05/26/17 [History] Vitamin A 8,000 unit PO DAILY 05/26/17 [History] Lutein/Minerals/Vit A,C & E [Ocuvite] 1 each PO DAILY 06/01/17 [History] atorvaSTATin [Lipitor] 10 mg PO BEDTIME 06/01/17 [History] amLODIPine Besylate [Norvasc] 1 tab PO DAILY 06/22/21 [History] hydroCHLOROthiazide [Hydrochlorothiazide] 1 cap PO DAILY 06/22/21 [History] Past Medical History HEENT History: Reports: None Other HEENT History: wears glasses Cardiovascular History: Reports: High Cholesterol Respiratory History: Reports: None Gastrointestinal History: Reports: Other (See Below) Other Gastrointestinal History: recent colitits and treatment for salmonella Genitourinary History: Reports: Other (See Below) Other Genitourinary History: bilat renal cysts, microscopic hematuria [employer] History: Reports: Musculoskeletal History: Reports: None Neurological History: Reports: None Psychiatric History: Reports: None Endocrine/Metabolic History: Reports: None Hematologic History: Reports: None Immunologic History: Reports: None Oncologic (Cancer) History: Reports: None Dermatologic History: Reports: None Other Dermatologic History: lykenplantus - Infectious Disease History Infectious Disease History: Reports: Chicken Pox, Measles - Past Surgical History HEENT Surgical History: Reports: Oral Surgery GI Surgical History: Reports: Colonoscopy Female Surgical History: Reports: Tubal Ligation Social & Family History - Tobacco Use Tobacco Use Status *Q: Never Tobacco User - Caffeine Use Caffeine Use: Reports: Coffee - Alcohol Use Alcohol Use History: No - Recreational Drug Use Recreational Drug Use: No Drug Use in Last 12 Months: No ED ROS GENERAL - Review of Systems Review Of Systems: See Below Constitutional: Reports: No Symptoms. Denies: Fever, Chills HEENT: Reports: No Symptoms. Denies: Rhinitis, Throat Pain Respiratory: Reports: No Symptoms. Denies: Shortness of Breath, Wheezing, Cough Cardiovascular: Reports: Lightheadedness. Denies: Chest Pain, Dyspnea on Exertion Endocrine: Reports: No Symptoms GI/Abdominal: Reports: No Symptoms. Denies: Abdominal Pain, Nausea, Vomiting : Reports: No Symptoms Musculoskeletal: Reports: No Symptoms Neurological: Reports: Dizziness Psychiatric: Reports: No Symptoms - Physical Exam Exam: See Below Exam Limited By: No Limitations General Appearance: Alert, WD/WN, No Apparent Distress Eye Exam: Bilateral Eye: EOMI, Normal Inspection, PERRL Ears: Normal External Exam Nose: Normal Inspection, Normal Mucosa Throat/Mouth: Normal Inspection, Normal Lips, Normal Teeth, Normal Voice Head Exam: Atraumatic, Normocephalic Neck: Normal Inspection, Supple, Non-Tender Respiratory/Chest: No Respiratory Distress, Lungs Clear, Normal Breath Sounds, No Accessory Muscle Use, Chest Non-Tender Cardiovascular: Normal Peripheral Pulses, Regular Rate, Rhythm, No Murmur GI/Abdominal: Normal Bowel Sounds, Soft, Non-Tender Neuro Exam (Abbreviated): Alert, Oriented, CN II-XII Intact, Normal Cognition, Normal Gait, Normal Reflexes (normal finger to nose with eyes closed. negative pronator drift, no nystagmus, normal strength in the upper and lower extremities, normal heel to kilpatrick, normal speech), No Motor/Sensory Deficits #1 Interpretation EKG Date: 06/22/21 Time: 11:01 Rhythm: NSR Rate (Beats/Min): 88 QRS: Normal ST-T: Normal QT: Normal EKG Interpretation Comments: large amount of artifact, difficult to se baseline Course - Vital Signs Last Recorded V/S: Last Vital Signs Temp 36.6 C 06/22/21 10:30 Pulse 90 06/22/21 10:30 Resp 15 06/22/21 10:30 BP 146/75 H 06/22/21 10:30 Pulse Ox 97 06/22/21 10:30 - Orders/Labs/Meds Orders: Active Orders 24 hr Category Date Time Status Cardiac Monitoring [RC] . DIRECTED Care 06/22/21 10:40 Active EKG Documentation Completion [RC] ASDIRECTED Care 06/22/21 10:37 Active Peripheral IV Care [RC] . DIRECTED Care 06/22/21 10:56 Active Vaccines to be Administered [RC] PER UNIT ROUTINE Care 06/22/21 12:35 Active Chest 2V [CR] Stat Exams 06/22/21 10:40 Ordered Head wo Cont [CT] Stat Exams 06/22/21 11:50 Taken PE Chest [Ang Chest] [CT] Stat Exams 06/22/21 11:48 Ordered UA RFX SAHRA AND CULT IF INDIC [URIN] Stat Lab 06/22/21 10:40 Ordered Sodium Chloride 0.9% [Saline Flush] Med 06/22/21 10:55 Active 10 ml FLUSH ASDIRECTED PRN Peripheral IV Insertion Adult [OM.PC] Routine Oth 06/22/21 10:55 Ordered Medication Orders Sodium Chloride (Sodium Chloride 0.9% 10 Ml Syringe) 10 ml FLUSH ASDIRECTED PRN PRN Reason: Keep Vein Open Labs: Laboratory Tests 06/22/21 06/22/21 06/22/21 Range/Units 10:40 10:40 10:50 WBC 8.7 (4.0-10.2) K/uL RBC 4.16 (3.77-5.09) M/uL Hgb 12.2 D (11.7-15.5) g/dL Hct 37.4 (34.0-46.0) % MCV 89.9 (84.0-98.0) fL MCH 29.3 (28.2-33.3) pg MCHC 32.6 (31.7-36.0) g/dL RDW 12.5 (11.2-14.1) % Plt Count 387 H (150-350) K/uL Neut % (Auto) 66.8 (45.0-80.0) % Lymph % (Auto) 19.8 (10.0-50.0) % [place] % (Auto) 12.7 (2.0-14.0) % Eos % (Auto) 0.5 (0.0-5.0) % Baso % (Auto) 0.2 (0.0-2.0) % Neut # (Auto) 5.82 (1.40-7.00) K/uL Lymph # (Auto) 1.73 (0.50-3.50) K/uL [place] # (Auto) 1.11 H (0.00-1.00) K/uL Eos # (Auto) 0.04 (0.00-0.50) K/uL Baso # (Auto) 0.02 (0.00-0.20) K/uL D-Dimer, Quantitative (0-400) ng/mL Sodium (136-145) mmol/L Potassium (3.5-5.1) mmol/L Chloride (98-107) mmol/L Carbon Dioxide (21.0-32.0) mmol/L Anion Gap (7-15) meq/L BUN (7-18) mg/dL Creatinine (0.51-1.17) mg/dL Est Cr Clr Drug Dosing Estimated GFR (MDRD) mL/min Glucose (70-99) mg/dL POC Glucose 94 (70-99) mg/dL Calcium (8.5-10.1) mg/dL Total Bilirubin (0.2-1.0) mg/dL AST (15-37) U/L ALT (12-78) U/L Alkaline Phosphatase (46-116) IU/L Troponin I High Sens (<=51) ng/L Total Protein (6.4-8.2) g/dL Albumin (3.4-5.0) g/dL SARS-CoV-2 RNA (OLIVER) Negative (NEGATIVE) 06/22/21 06/22/21 Range/Units 10:50 10:50 WBC (4.0-10.2) K/uL RBC (3.77-5.09) M/uL Hgb (11.7-15.5) g/dL Hct (34.0-46.0) % MCV (84.0-98.0) fL MCH (28.2-33.3) pg MCHC (31.7-36.0) g/dL RDW (11.2-14.1) % Plt Count (150-350) K/uL Neut % (Auto) (45.0-80.0) % Lymph % (Auto) (10.0-50.0) % [place] % (Auto) (2.0-14.0) % Eos % (Auto) (0.0-5.0) % Baso % (Auto) (0.0-2.0) % Neut # (Auto) (1.40-7.00) K/uL Lymph # (Auto) (0.50-3.50) K/uL [place] # (Auto) (0.00-1.00) K/uL Eos # (Auto) (0.00-0.50) K/uL Baso # (Auto) (0.00-0.20) K/uL D-Dimer, Quantitative 1040 H (0-400) ng/mL Sodium 138 (136-145) mmol/L Potassium 3.7 (3.5-5.1) mmol/L Chloride 101 (98-107) mmol/L Carbon Dioxide 30.7 (21.0-32.0) mmol/L Anion Gap 6.3 L (7-15) meq/L BUN 18 (7-18) mg/dL Creatinine 1.48 H (0.51-1.17) mg/dL Est Cr Clr Drug Dosing TNP Estimated GFR (MDRD) 35 mL/min Glucose 105 H (70-99) mg/dL POC Glucose (70-99) mg/dL Calcium 9.5 (8.5-10.1) mg/dL Total Bilirubin 0.3 (0.2-1.0) mg/dL AST 33 (15-37) U/L ALT 20 (12-78) U/L Alkaline Phosphatase 89 (46-116) IU/L Troponin I High Sens 8 (<=51) ng/L Total Protein 7.6 (6.4-8.2) g/dL Albumin 3.3 L (3.4-5.0) g/dL SARS-CoV-2 RNA (OLIVER) (NEGATIVE) Meds: Medications Generic Name Dose Route Start Last Admin Trade Name Freq PRN Reason Stop Dose Admin Sodium Chloride 10 ml 06/22/21 10:55 Sodium Chloride 0.9% 10 Ml Syringe FLUSH ASDIRECTED PRN Keep Vein Open Discontinued Medications Generic Name Dose Route Start Last Admin Trade Name Freq PRN Reason Stop Dose Admin Diphtheria/Tetanus/Acell Pertussis 0.5 ml 06/22/21 12:35 06/22/21 12:55 Diphtheria,Pertussis(Acell),Tetanus Vaccine 0.5 Ml Syringe IM 06/22/21 12:36 0.5 ml .ONCE ONE Administration Sodium Chloride 1,000 mls @ 1,000 mls/hr 06/22/21 10:55 06/22/21 11:14 Normal Saline IV 06/22/21 11:54 1,000 mls/hr .BOLUS ONE Administration Iopamidol 100 ml 06/22/21 11:55 06/22/21 12:15 Iopamidol 755 Mg/Ml 100 Ml Bottle IVPUSH 06/22/21 11:56 100 ml ONETIME ONE Administration - Radiology Interpretation Free Text/Narrative:: ct head without acute changes ct chest with bibasilar atelectasis, no PE. discussed with radiologist,. see report - Re-Assessments/Exams Free Text/Narrative Re-Assessment/Exam: 06/22/21 1140 will give IV fluids 1 liter bolus. exam is normal. Check covid, ekg chest x- ray. ddimer was elevated chest pe protocol ordered. will get head ct at some time 06/22/21 12:59 given tetanus update. Discussed syncope with patient. Discussed possible follow up for heart monitoring. Departure - Departure Time of Disposition: 13:00 Disposition: Home, Self-Care 01 Clinical Impression: Syncope Qualifiers: Syncope type: unspecified Qualified Code(s): R55 - Syncope and collapse - Discharge Information *PRESCRIPTION DRUG MONITORING PROGRAM REVIEWED*: Not Applicable *COPY OF PRESCRIPTION DRUG MONITORING REPORT IN PATIENT SILVIA: Not Applicable Instructions: Syncope, [id number] Referrals: Lacy Chandler NP [Primary Care Provider] - Forms: ED Department Discharge Additional Instructions: hydrate well, use caution when changing positions. Follow up with your PCP for possible holter monitoring to rule out abnormal heart rate as a cause of the syncope/ Sepsis Event Note (ED) - Evaluation Sepsis Screening Result: No Definite Risk - Focused Exam Vital Signs: Vital Signs Temp Pulse Resp BP Pulse Ox 06/22/21 10:30 36.6 C 90 15 146/75 H 97 - My Orders Last 24 Hours: My Active Orders 06/22/21 10:37 EKG Documentation Completion [RC] ASDIRECTED 06/22/21 10:40 Cardiac Monitoring [RC] . DIRECTED Chest 2V [CR] Stat UA RFX SAHRA AND CULT IF INDIC [URIN] Stat 06/22/21 10:55 Sodium Chloride 0.9% [Saline Flush] 10 ml FLUSH ASDIRECTED PRN Peripheral IV Insertion Adult [OM.PC] Routine 06/22/21 10:56 Peripheral IV Care [RC] . DIRECTED 06/22/21 11:48 PE Chest [Ang Chest] [CT] Stat 06/22/21 11:50 Head wo Cont [CT] Stat 06/22/21 12:35 Vaccines to be Administered [RC] PER UNIT ROUTINE - Assessment/Plan Last 24 Hours: My Active Orders 06/22/21 10:37 EKG Documentation Completion [RC] ASDIRECTED 06/22/21 10:40 Cardiac Monitoring [RC] . DIRECTED Chest 2V [CR] Stat UA RFX SAHRA AND CULT IF INDIC [URIN] Stat 06/22/21 10:55 Sodium Chloride 0.9% [Saline Flush] 10 ml FLUSH ASDIRECTED PRN Peripheral IV Insertion Adult [OM.PC] Routine 06/22/21 10:56 Peripheral IV Care [RC] . DIRECTED 06/22/21 11:48 PE Chest [Ang Chest] [CT] Stat 06/22/21 11:50 Head wo Cont [CT] Stat 06/22/21 12:35 Vaccines to be Administered [RC] PER UNIT ROUTINE
[2021-06-22] MEDS ORDERED: Diphtheria,Pertussis(Acell),Tetanus Vaccine 0.5 ML Syringe IM ONE (12:35)
[2021-06-22 14:41] VITALS: BP 144/63; PULSE 95
== END 2021-06-22 13:20 | disposition home or self-care (01) ==
LOC: LL.ED 10:29
DX: R55 Syncope and collapse (principal); E78.00 Pure hypercholesterolemia, unspecified; Z79.899 Other long term (current) drug therapy; Z88.1 Allergy status to other antibiotic agents; Z88.8 Allergy status to other drugs, medicaments and biological substances; Z20.822 Contact with and (suspected) exposure to COVID-19; Z23 Encounter for immunization
CPT/HCPCS: 36415; 70450; 71046; 71275; 80053; 82947; 84484; 85025; 85379; 90471; 90715; 93005; 93010; 99284; 99285-25; J7030; Q9967; U0002

== ENCOUNTER 2024-07-13 07:45 | Observation (INO) | payer MEDICARE, OTHER ==
[2024-07-13 08:03] LABS: BASOPHILS ABSOLUTE AUTO 0.01 K/uL (0.00-0.20); BASOPHILS PERCENT AUTO 0.1 % (0.0-2.0); EOSINOPHILS ABSOLUTE AUTO 0.05 K/uL (0.00-0.50); EOSINOPHILS PERCENT AUTO 0.4 % (0.0-5.0); HEMATOCRIT 40.6 % (34.0-46.0); HEMOGLOBIN 13.8 g/dL (11.7-15.5); LYMPHOCYTES ABSOLUTE AUTO 1.41 K/uL (0.50-3.50); LYMPHOCYTES PERCENT AUTO 10.5 % (10.0-50.0); MEAN CORPUSCULAR HEMOGLOBIN 29.1 pg (28.2-33.3); MEAN CORPUSCULAR VOLUME 85.7 fL (84.0-98.0); MONOCYTES ABSOLUTE AUTO 1.13 K/uL (0.00-1.00); MONOCYTES PERCENT AUTO 8.4 % (2.0-14.0); NEUTROPHILS PERCENT AUTO 80.6 % (45.0-80.0); PLATELET COUNT,PLT 420 K/uL (150-350); RED BLOOD CELL COUNT 4.74 M/uL (3.77-5.09); RED CELL DISTRIBUTION WIDTH 13.3 % (11.2-14.1); WHITE BLOOD CELL COUNT,WBC 13.4 K/uL (4.0-10.2)
[2024-07-13 08:20] LABS: BILIRUBIN TOTAL 0.5 mg/dL (0.2-1.0); CARBON DIOXIDE,CO2 29.8 mmol/L (21.0-32.0); POTASSIUM,K 3.1 mmol/L (3.5-5.1); PROTEIN TOTAL,TP 7.7 g/dL (6.4-8.2)
[2024-07-13 08:32] LABS: ANION GAP 11.3 meq/L (7-15)
[2024-07-13 08:38] LABS: ALBUMIN 3.3 g/dL (3.4-5.0); CREATININE 1.36 mg/dL (0.51-1.17); EST CRCL DRUG DOSING (CG) 26.21 mL/min
[2024-07-13] MEDS ORDERED: Sodium Chloride 0.9% 10 ML Syringe FLUSH PRN (08:50)
[2024-07-13 09:12] LABS: MAGNESIUM 1.5 mg/dL (1.8-2.4)
[2024-07-13] MEDS: Lactated Ringers 1,000 ML IV ONE (09:31)
[2024-07-13] MEDS: Ondansetron 4 MG/2 ML SDV IVPUSH ONE (09:53)
[2024-07-13] MEDS: Magnesium Sulfate/Water 2 GM in Premix Bag 1 BAG IV ONE (09:53)
[2024-07-13] MEDS: Potassium Bicarbonate/Cit Ac 20 MEQ Effervescent Tab PO SCH (09:57)
[2024-07-13 13:47] VITALS: BP 117/64; PULSE 76
[2024-07-13 18:01] LABS: ANION GAP 6.9 meq/L (7-15); CALCIUM 9.2 mg/dL (8.5-10.1); CARBON DIOXIDE,CO2 34.6 mmol/L (21.0-32.0); CREATININE 1.3 mg/dL (0.51-1.17); EST CRCL DRUG DOSING (CG) 27.42 mL/min; MAGNESIUM 2.3 mg/dL (1.8-2.4); POTASSIUM,K 3.5 mmol/L (3.5-5.1)
[2024-07-13] MEDS: Take Home: Ondansetron 4 MG Tab.DIS, 5 Tab Pack PO ONE (18:53)
== END 2024-07-13 19:00 | disposition home or self-care (01) ==
LOC: LL.ED 07:45 → LL.MS 12:02 → INTOOBSV 12:02
PROVIDERS: ADMIT Physician Assistant; ATTEND Physician Assistant
DX: U07.1 COVID-19 (principal); E87.6 Hypokalemia; E83.42 Hypomagnesemia
CPT/HCPCS: 36415; 80048; 80053; 83735; 83880; 85025; 96361; 96365; 96366; 96375; 99236; 99285-25; A9270-GY; G0378; J2405; J3475; J7120; Q0162; U0002